=== PATIENT | female | born 1990 | race Caucasian/White ===

== ENCOUNTER 2023-10-03 01:50 | Emergency (ER) | payer OTHER ==
[~2023-10-03] VITALS: Ht 165.1 cm; Wt 72.6 kg
[2023-10-03 01:50] VITALS: BP 184/124; PULSE 92; RESP 17; TEMP 97.7; O2SAT 100
[2023-10-03 02:18] VITALS: BP 169/115; PULSE 84; RESP 17; TEMP 97.7; O2SAT 100
[2023-10-03] MEDS: LORazepam 1 MG TAB PO ONE (02:33)
== END 2023-10-03 02:51 ==
LOC: MED 01:50
DX: I10 Essential (primary) hypertension (principal); F15.10 Other stimulant abuse, uncomplicated
CPT/HCPCS: 99283